=== PATIENT | female | born 1970 | race Caucasian/White ===

== ENCOUNTER → 2019-12-26 | Outpatient (CLI) | payer OTHER ==
[2019-12-27 04:06] LABS: RUBELLA AB IGG-REFLAB 3.85 index (Immune >0.99); RUBEOLA (MEASLES) IGG >300.0 AU/mL (Immune >16.4)
== END | disposition home or self-care (01) ==
LOC: LABMN 13:16
PROVIDERS: ATTEND Internal Medicine
DX: Z02.1 Encounter for pre-employment examination (principal)
CPT/HCPCS: 86706; 86735; 86762; 86765; 86787

== ENCOUNTER 2020-05-06 16:28 | Emergency (ER) | payer OTHER ==
[~2020-05-06] VITALS: Ht 157.5 cm; Wt 113.6 kg
[2020-05-06 16:32] VITALS: BP 171/95
[2020-05-06] MEDS ORDERED: OMEP20 PO (16:43)
[2020-05-06] MEDS ORDERED: FLUO-191 PO (16:43)
[2020-05-06] MEDS ORDERED: LISI-662 PO (16:43)
[2020-05-06] MEDS ORDERED: HYDR-1475 PO (16:43)
[2020-05-06] MEDS ORDERED: METF-960 PO (16:43)
[2020-05-06] MEDS ORDERED: DIVA-80 PO (16:43)
[2020-05-06] MEDS ORDERED: ATOR20TA86 PO (16:43)
[2020-05-06] MEDS ORDERED: AMLO-258 PO (16:43)
[2020-05-06] MEDS ORDERED: BUPR-93 PO (16:43)
[2020-05-06] MEDS ORDERED: CARV12 PO (16:43)
[2020-05-06] MEDS ORDERED: LAMO100 PO (16:43)
== END 2020-05-06 17:21 | disposition home or self-care (01) ==
LOC: EMS 16:28
DX: R05 Cough (principal); J02.9 Acute pharyngitis, unspecified; F31.9 Bipolar disorder, unspecified; E11.9 Type 2 diabetes mellitus without complications; K21.9 Gastro-esophageal reflux disease without esophagitis; E78.00 Pure hypercholesterolemia, unspecified; I10 Essential (primary) hypertension; Z20.828 Contact with and (suspected) exposure to other viral communicable diseases; Z90.89 Acquired absence of other organs; Z90.710 Acquired absence of both cervix and uterus; Z79.899 Other long term (current) drug therapy; Z91.030 Bee allergy status; Z79.84 Long term (current) use of oral hypoglycemic drugs
CPT/HCPCS: 82962; 99283; U0003